=== PATIENT | male | born 1960 | race Caucasian/White ===

== ENCOUNTER → 2023-07-16 11:10 | Outpatient (REF) | payer OTHER, SELFPAY | LOC: RAD 11:10 | PROVIDERS: ATTENDING PHYSICIAN Physician Assistant; FAMILY PHYSICIAN Family Medicine | DX: I77.9 Disorder of arteries and arterioles, unspecified (principal) | CPT/HCPCS: 93922; 93925 ==

== ENCOUNTER 2023-07-22 08:24 | Day surgery (SDC) | payer OTHER, SELFPAY ==
[2023-07-22] VITALS (29 sets, daily range): BP systolic 104–219; BP diastolic 47–195; BMI 27.2
[2023-07-22 08:57] LABS: Hematocrit 35.8 % (39.0-52.0); Hemoglobin 11.9 g/dL (13.0-18.0); Mean Corp Hgb Conc. 33.2 g/dL (33.0-37.0); Mean Corpuscular Hgb 29.8 pg (27.0-31.0); Mean Corpuscular Volume 89.7 fL (80.0-94.0); Mean Platelet Volume 9.8 fL (7.4-10.4); Platelet Count 301 10^3/uL (130-400); Red Blood Cell Count 3.99 10^6/uL (4.70-6.10); Red Cell Dist. Width 14.5 % (11.5-14.5); White Blood Cell Count 6.8 10^3/uL (4.8-10.8)
[2023-07-22 09:06] LABS: Blood Urea Nitrogen 21 mg/dl (9-20); Calcium 8.9 mg/dl (8.4-10.2); Carbon Dioxide 27 mmol/L (22-30); Chloride 103 mmol/L (98-107); Glucose 97 mg/dl (70-99); Potassium 4.4 mmol/L (3.5-5.1); Sodium 136 mmol/L (135-145); eGFR 41.51
[2023-07-22 09:11] LABS: INR 1.04; PT 13.4 Sec (11.4-14.6)
[2023-07-22 09:12] LABS: APTT 41.7 Sec (23.4-35.0)
[2023-07-22] MEDS: NSS 233 ML IV (09:27)
--- NOTE | 2023-07-22 10:24 | W.SUR.PREOP ---
Pre-Operative Surgical Note
-
I have examined this patient prior to the performance of the scheduled procedure.
The patient's condition is unchanged from the time of the current History and
Physical and the patient is able to undergo the scheduled procedure.
[2023-07-22] MEDS: PLAVIX 300 MG PO (13:08)
[2023-07-22] MEDS: NSS 1000 IV (13:09)
--- NOTE | 2023-07-22 14:57 | OR.RPT ---
Operative Report
Operative Report
Date of Operation: 07/22/2023
Pre Op Diagnosis:
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
2.) Threatened left lower extremity common femoral - peroneal artery bypass
Post Op Diagnosis:
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
2.) Threatened left lower extremity common femoral - peroneal artery bypass
Procedure:
1.) Balloon angioplasty and drug-eluting stent to distal vein graft/distal anastomosis of left lower extremity bypass (3.5 mm x 38 mm Medtronic [place] Zotarolimus-eluting stent; post-dilated with 3.5 mm x 20 mm NC Trek balloon)
2.) Diagnostic aortobiiliac arteriogram
3.) Diagnostic left lower extremity arteriogram
4.) Ultrasound-guided percutaneous access to the right common femoral artery
Surgeon: Rosales Zavala III, MD
Mop Maker: Vimal Hernandez MD PGY-1
Anesthesia: Sedation with local
Fluoroscopy:
21.3 min
157 mGy
35.31 Gy.cm2
Complications: None
Estimated Blood Loss: Minimal
History and Indications for Procedure: 62-year-old male with left lower extremity common femoral artery to peroneal artery bypass. Surveillance duplex imaging demonstrated high-grade stenosis involving the distal bypass/distal anastomosis. This
had been previously intervened on several months ago. I brought him back for angio and intervention.
Procedure in Detail: Francis Nguyen was correctly identified and placed supine on the operating table. After adequate induction of anesthesia the bilateral groins were prepped and draped in the usual sterile fashion. A timeout was performed with the
nursing and anesthesia staff confirming the patient's identity as well as the nature and laterality of the procedure.
The right common femoral artery was identified under ultrasound guidance. The artery was patent. The superior and inferior aspects of the femoral head were identified with radiographic guidance and marked at the skin level. The proposed puncture
site was infiltrated with local anesthesia. We saved a copy of the ultrasound image to the medical record. Under ultrasound guidance we accessed the right common femoral artery with a micropuncture needle and upsized to a 5 Fr sheath over a SmartDocs (Teknowmics)
wire. The wire and a Shepherds hook flush catheter were advanced into the distal abdominal aorta and a diagnostic aorto-biiliac arteriogram was performed:
AORTO-ILIAC ARTERIOGRAM:
Aorta: Patent with no stenosis identified
Right common iliac artery: Patent with no stenosis identified
Right external iliac artery: Patent with no stenosis identified
Left common iliac artery: Patent with no stenosis identified
Left external iliac artery: Patent with no stenosis identified
Under roadmap guidance using a Glidewire and the Shepherds hook catheter we selected the left common iliac artery and then the external iliac artery. A catheter was tracked up and over the aortic bifurcation and placed in the distal external iliac
artery. A diagnostic left lower extremity arteriogram was then performed which demonstrated the following:
LEFT LOWER EXTREMITY:
Common femoral artery: Patent with no stenosis identified
Profunda femoral artery: Patent with no stenosis identified
Superficial femoral artery: Occluded
Bypass: Patent proximal anastomosis with no stenosis identified. Proximal vein graft patent with no stenosis identified however sluggish flow demonstrated.
ENDOVASCULAR INTERVENTION: Systemic heparin was administered. Selected the bypass using a Glidewire and the sanchez's hook catheter under roadmap guidance. Exchanged out for a 5 Fr 45 cm sheath over a Storq wire. The Glidewire and Quickcross
catheter were advanced into the distal bypass below the knee. An arteriogram was performed through the Quickcross catheter which showed a near complete occlusion of the distal bypass and near static flow in the bypass distally. Under roadmap
guidance the distal vein graft and distal anastomosis were crossed with a hydrophilic tip 0.014 wire and Quickcross. The wire and catheter were advanced into the peroneal artery and subtraction angio confirmed proper position in the true lumen.
With the wire in position the Quickcross catheter was retracted proximally and an arteriogram under magnification view demonstrated the length of high-grade stenosis involving the distal bypass, distal anastomosis and peroneal artery. A 3.5 mm x 80
mm angioplasty balloon was placed across the stenosis under roadmap guidance. The balloon was inflated to nominal pressure, held in place for 2 minutes and then deflated and removed over the wire. Subsequent arteriogram demonstrated an improved but
suboptimal result with residual stenosis at the distal end of the vein graft. I then brought into position a 3.5 mm x 38 mm Medtronic [place] stent and positioned this across the residual stenosis under roadmap guidance. The stent was deployed
and the delivery system removed over the wire. The stent was profiled with a 3.5 mm x 20 mm noncompliant balloon inflated to rated burst pressure. This profiled the stent nicely and achieved full expansion.
COMPLETION ARTERIOGRAM: Excellent technical result. Brisk flow through the left lower extremity bypass. Widely patent stent in the distal vein graft across the distal anastomosis with no residual stenosis identified. Brisk peroneal artery outflow
identified with no areas of distal stenosis. Reconstituted posterior tibial and dorsalis pedis arteries via the peroneal artery collaterals. Robust flow into the foot identified on completion.
Satisfied with this result we then concluded the procedure. The sheath tip was pulled back into the right external iliac artery. Protamine was administered. The sheath was secured in place with the plan to pull it in the recovery room.
The patient tolerated the procedure well and was taken to the recovery area in stable condition.
Attestation: I was present and responsible for the entire procedure.
Signed:
Rosales Zavala III, MD
[facility]
[phone] (xiik)
--- NOTE | 2023-07-22 15:56 | PTCARENOTE ---
Call placed to pt's son Julius to review discharge instructions and discharge time. Pt 's son verbalized understanding of instructions given. Questions encouraged and answered.
--- NOTE | 2023-07-22 16:22 | W.IMMPOSTOP ---
Surgical Immed Post Op Note
-
Primary Surgeon: Rosales Zavala III, MD
Assisting Surgeon: Vimal Hernandez MD
Pre-op Diagnosis: LLE PAD
Post-op Diagnosis: LLE PAD
Procedure Performed: Diagnostic LLE arteriogram, LLE SFA-Peroneal bypass angioplasty & stenting
Anesthesia Type: Light Sedation
Specimen / Cultures: None
Estimated Blood Loss: 2cc
Complications: None
Operative Findings: Prior LLE bypass noted to be diffusely sluggish. A 3.5mm balloon expandable stent was placed in the distal bypass. Post stent-placement demonstrated widely patent flow.
== END 2023-07-22 18:05 | disposition home or self-care (01) ==
LOC: CATH 08:24
PROVIDERS: ATTENDING PHYSICIAN Surgery Vascular Surgery; FAMILY PHYSICIAN Family Medicine
DX: I70.322 Atherosclerosis of unspecified type of bypass graft(s) of the extremities with rest pain, left leg (principal); Z79.82 Long term (current) use of aspirin; Z79.01 Long term (current) use of anticoagulants; I10 Essential (primary) hypertension; Z87.891 Personal history of nicotine dependence
CPT/HCPCS: 37226; 75625; 75716; 76937; 80048; 85027; 85610; 85730; C1725; C1769; C1874; C1894; Q9967

== ENCOUNTER → 2023-08-19 09:01 | Outpatient (REF) | payer OTHER, SELFPAY | LOC: RAD 09:01 | PROVIDERS: ATTENDING PHYSICIAN Surgery Vascular Surgery; FAMILY PHYSICIAN Family Medicine | DX: I77.9 Disorder of arteries and arterioles, unspecified (principal) | CPT/HCPCS: 93922; 93925 ==

== ENCOUNTER → 2023-12-30 10:43 | Outpatient (REF) | payer OTHER, SELFPAY | LOC: RAD 10:43 | PROVIDERS: ATTENDING PHYSICIAN Registered Nurse; FAMILY PHYSICIAN Family Medicine | DX: I77.9 Disorder of arteries and arterioles, unspecified (principal) | CPT/HCPCS: 93922; 93925 ==